=== PATIENT | female | born 1955 | race Caucasian/White ===

== ENCOUNTER 2020-03-13 07:47 | Outpatient (CLI) | payer BC, SELFPAY ==
--- NOTE | ~2020-03-13 | US_ITS ---
US right upper quadrant DATE: 03/13/2020 08:31 INDICATION: Right upper quadrant abdominal pain for 1.5 weeks TECHNIQUE: Real-time imaging of liver, pancreas, gallbladder areas COMPARISON: 12/25/2016 Limited abdominal ultrasound FINDINGS: The pancreas is obscured by bowel gas. There is fatty change of the liver. There is normal hepatic portal venous flow direction. There is an approximately 1.8 cm gallbladder neck stone. No gallbladder wall thickening. Negative son ographic Robin's sign. The common bile duct measures 5.8 mm, within normal range. IMPRESSION: Cholelithiasis Hepatic steatosis Reviewed, dictated and finalized at [facility]. Reviewed, dictated and finalized at [facility].
[2020-03-13 09:10] LABS: Basophils Percent Auto 0.6 % (0.2-1.2); Eosinophils Absolute Auto 0.2 K/mm3 (0-0.3); Eosinophils Percent Auto 2.9 % (0-4.4); Hematocrit 37.2 % (37.0-47.0); Immature Granulocyte Absolute 0.02 K/mm3 (0.00-0.031); Immature Granulocyte Percent A 0.3 % (0-0.5); Lymphocytes Percent Auto 20.1 % (18.3-44.2); Mean Corpuscular HGB Conc 29.6 g/dl (32-36); Mean Corpuscular Hemoglobin 22.7 pg (26-34); Mean Corpuscular Volume 76.9 fl (80-100); Mean Platelet Volume 9.9 fl (7.4-10.4); Monocytes Absolute Auto 0.7 K/mm3 (0.1-0.6); Monocytes Percent Auto 10.5 % (2.6-8.5); Neutrophils Absolute Auto 4.2 K/mm3 (1.3-6.7); Neutrophils Percent Auto 65.6 % (45.5-73.1); Platelet Count Result 303 k/mm3 (150-375); Red Blood Count 4.84 M/mm3 (4.2-5.4); Red Cell Distribution Width 18.5 % (11.5-14.5); White Blood Count 6.5 K/mm3 (4.5-10.0)
[2020-03-13 09:25] LABS: Alanine Aminotransferase 31 U/L (4-35); Albumin Level 4.2 g/dL (3.5-5.1); Alkaline Phosphatase 85 U/L (38-126); Amylase 49 U/L (30-110); Aspartate Amino Transferase 30 U/L (14-36); Bilirubin,Total 0.2 mg/dL (0.2-1.3); Blood Urea Nitrogen 17 mg/dL (7-17); Calcium 9.1 mg/dL (8.4-10.2); Carbon Dioxide 30 mmol/L (22-30); Chloride 103 mmol/L (98-107); Estimated Glomerular Filt Rate > 60; Glucose 106 mg/dL (65-105); Lipase 49 U/L (23-300); Potassium 3.9 mmol/L (3.4-5.0); Sodium 140 mmol/L (137-145)
[2020-03-13 09:55] LABS: Anisocytosis 1+ (NORMAL); Hypochromasia 1+ (NORMAL); Platelet Estimate Adequate (Adequate)
== END 2020-03-13 07:48 | disposition home or self-care (01) ==
PROVIDERS: PCP Family Medicine; Visit Provider Nurse Practitioner Family
DX: R10.11 Right upper quadrant pain (principal); K80.20 Calculus of gallbladder without cholecystitis without obstruction; K76.0 Fatty (change of) liver, not elsewhere classified
CPT/HCPCS: 36415; 76705; 80053; 82150; 83690; 85025

== ENCOUNTER 2020-06-22 15:23 | Outpatient (CLI) | payer BC, SELFPAY ==
--- NOTE | 2020-06-22 15:25 | ECG_ITS ---
Measurements Intervals [place] Rate: 67 P: 16 DC: 150 QRS: 37 QRSD: 149 T: 24 QT: 414 QTc: 440 Interpretive Statements SINUS RHYTHM RIGHT BUNDLE BRANCH BLOCK ABNORMAL ECG Electronically Signed On 06-22-2020 16:34:03 CDT by Branden Negro D.O.
[2020-06-22 16:07] LABS: Alanine Aminotransferase 24 U/L (4-35); Albumin Level 3.8 g/dL (3.5-5.1); Alkaline Phosphatase 91 U/L (38-126); Amylase 61 U/L (30-110); Aspartate Amino Transferase 23 U/L (14-36); Bilirubin,Total < 0.1 mg/dL (0.2-1.3); Lipase 69 U/L (23-300)
== END 2020-06-22 15:24 | disposition home or self-care (01) ==
PROVIDERS: PCP Family Medicine; Visit Provider Surgery
DX: K80.10 Calculus of gallbladder with chronic cholecystitis without obstruction (principal); I10 Essential (primary) hypertension; Z01.812 Encounter for preprocedural laboratory examination; I45.10 Unspecified right bundle-branch block
CPT/HCPCS: 36415; 80076; 82150; 83690; 86850; 86900; 86901; 93005

== ENCOUNTER 2020-07-02 01:33 | Outpatient (CLI) | payer BC, SELFPAY ==
[2020-07-02 18:20] LABS: SARS-CoV-2 RNA PCR Negative
== END 2020-07-02 01:34 | disposition home or self-care (01) ==
LOC: ANHCOVIDDT 01:33
PROVIDERS: PCP Family Medicine; Visit Provider Surgery
DX: Z01.812 Encounter for preprocedural laboratory examination (principal); Z11.59 Encounter for screening for other viral diseases
CPT/HCPCS: 87635; C9803; U0003

== ENCOUNTER 2020-07-04 01:08 | Day surgery (SDC) | payer BC, SELFPAY ==
[2020-06-19 09:20] VITALS: BMI 37.9
--- NOTE | 2020-07-03 08:43 | PM.SD ---
Same Day Admit/Disch: HPI History of Present Illness Chief complaint: Chronic Cholelithiasis with Stones Narrative: Jessika Coppola is a 64 year old female Who started did noting right upper quadrant postprandial abdominal pain about 3 or 4 months ago. This was worse after eating fatty foods. She did changed to a low-fat diet and her symptoms improved significantly. Iigj-zib-epzywwc gas reduction medication have helped as well. She had an ultrasound of the right upper quadrant back in February which showed gallstones with a 1.8 cm stone at the neck of the gallbladder. Her mother has had gallbladder disease and cholecystectomy. After discussion, she is taken to surgery now for laparoscopic cholecystectomy for chronic cholecystitis with gallstones. 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 Spiritual care concerns: No Same Day Admit/Disch: Med Pre-admit Medications Home Medications Medication Instructions Recorded Confirmed Type sertraline 25 mg tablet 25 mg PO DAILY #90 tablet 10/17/19 06/19/20 Rx losartan 25 mg tablet 25 mg PO DAILY #90 tablet 04/25/20 06/19/20 Rx metoprolol succinate 100 mg 100 mg PO DAILY #90 tablet 04/30/20 06/19/20 Rx tablet,extended release 24 hr hydrocodone-acetaminophen 1 - 2 tablet PO Q6H PRN #7 tablet 07/04/20 Rx ketorolac 10 mg PO Q6H 4 Days #16 tablet 07/04/20 Rx Exam Const: General: comfortable, no acute distress, alert and awake HENMT: Head: normocephalic and atraumatic Mouth: Yes Normal oral and palatal mucosa present Eyes: Conjunctivae: conjunctivae normal Pupils: Equal, round and reactive pupils present EOM: EOMs intact bilaterally Neck: Neck: normal visual inspection, no lymphadenopathy and nontender Resp: Effort & Inspection: normal respiratory effort Auscultation: clear to auscultation bilaterally Cardio: Rate: regular rate Rhythm: regular rhythm Heart sounds: no gallops, no murmurs and no rubs GI: Inspection: non-distended and obesity GI Palp: Yes Soft to palpation, No Tenderness to palpation present (GI), No Hepatomegaly present, No Splenomegaly present and No Palpable mass present Auscultation: normal bowel sounds Skin: Lesions: no lesions Rashes: no rashes Neuro: General: no focal motor deficits and CN's II-XI intact bilaterally Cranial nerves: Yes Equal, round and reactive pupils present, Yes Bilaterally intact EOM present, Yes facial symmetry and Yes Midline tongue present Speech: normal speech Motor exam (neuro): 5/5 motor strength present throughout and Motor abnormalities not present Extrem: General: no clubbing, cyanosis or edema and edema Psych: Affect: normal affect Thought process: Normal thought process present Insight: Good insight present (Psych) DS: Summary Time Spent with Patient Time attestation: Total time spent providing and/or coordinating discharge services: DS: Admitting Diagnosis Admitting Diagnosis Admitting Diagnosis: Calculus of gallbladder with chronic cholecystitis without obstruction essential hypertension obesity seasonal allergies DS: Discharge Diagnosis Discharge Diagnosis (1) Cholelithiasis with chronic cholecystitis: Qualifiers:
[2020-07-04] VITALS (9 sets, daily range): BP systolic 149–186; BP diastolic 81–99; PULSE 81–92; RESP 10–18; TEMP 36.9–37; O2SAT 93–100
[2020-07-04] MEDS: ACETAMINOPHEN 500 MG TABLET 1000 MG PO (07:05)
[2020-07-04] MEDS: LACTATED RINGERS 1,000 ML 30 ML IV CONT ×2 (07:10→10:11)
--- NOTE | 2020-07-04 07:11 | WPDANESEPPF ---
Anes - Initial Pre Proc Eval Procedure: Operation Date: 07/04/20 08:30 Proposed Procedures p Laparoscopic Cholecystectomy - Dinesh Owens MD Date/Time: 07/04/20 07:11 Surgeon: Dinesh Owens MD Pre Op Diagnosis: Chronic Cholelithiasis with Stones Patient Data Age: 64 Gender: F Height: 5 ft 6 in Weight: 108.8 kg Allergies Allergy/AdvReac Type Severity Reaction Status Date / Time lisinopril Allergy Mild swelling Verified 06/19/20 09:21 Home Medications Medication Instructions Recorded Confirmed Type sertraline 25 mg tablet 25 mg PO DAILY #90 tablet 10/17/19 06/19/20 Rx losartan 25 mg tablet 25 mg PO DAILY #90 tablet 04/25/20 06/19/20 Rx metoprolol succinate 100 mg 100 mg PO DAILY #90 tablet 04/30/20 06/19/20 Rx tablet,extended release 24 hr Patient hx anesthesia problems: other (motion sickness) Family hx anesthesia problems: none PMFSH Past Medical History Medical History Anxiety Essential (primary) hypertension Hypothyroidism Stomach ulcer Surgical History Surgical History H/O: section Family History Family History Father Hypertension Cancer Mother Cerebrovascular accident Grandparent Family history of malignant neoplasm Diabetes mellitus Sibling Cerebrovascular accident Other Family history of alcoholism Social History Social History Smoking status: Never smoker Alcohol intake: current Drinks per week: 2 Substance use: never 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 Questions were solicited and answers provided to the satisfaction of the patient/family/POA.
[2020-07-04] MEDS: KETOROLAC 15 MG/ML VIAL (*BKC) IV PUSH (07:16)
[2020-07-04] MEDS: SCOPOLAMINE 1.5 MG PATCH TRANSDERM (07:17)
--- NOTE | 2020-07-04 08:46 | WPDHPUPDATE1 ---
History and Physical Update Update Date/Time: 07/04/20 08:46 History and Physical has been reviewed, including an updated exam of the patient. There are NO changes in the patient's condition. Risks, benefits, and alternatives have been discussed and questions answered. Patient agrees to proceed with procedure.
[2020-07-04] MEDS: ceFAZolin 2 GM/D5W 50 ML 2 GM/50 ML BAG IVPB (08:54)
[2020-07-04] MEDS: BUPIVACAINE/EPINEPHRINE 0.5% 30 ML VIAL INFILTRATE (09:11)
--- NOTE | 2020-07-04 09:52 | P.OP_ITS ---
Procedure Note - Detailed Date of procedure: 07/04/20 Pre-op diagnosis: Chronic Cholelithiasis with Stones Chronic cholecystitis, cholelithiasis Post-op diagnosis: same Procedure performed: Laparoscopic cholecystectomy Description of procedure: The patient was taken to surgery and induced into general anesthesia. The abdomen was prepped and draped. Trocars were placed in the usual fashion using 0.5% Marcaine with epinephrine and applied Medical optical trocars. A 5 millimeter camera was used. The gallbladder was decompressed with a laparoscopic aspirator. The cholecystotomy was closed with a Vicryl endo-loop. The gallbladder was retracted anterosuperiorly. Adhesions to the gallbladder were taken down so that the cholecystohepatic triangle was exposed. Traction was placed on the inf undibulum. The cystic duct and cystic artery were dissected out very clearly. The gallbladder was dissected off the liver at its lower 3rd. Critical view was achieved. We securely clipped and divided the cystic duct and cystic artery. The gallbladder was then further retracted so that the peritoneal attachments to the liver could be divided. Once the gallbladder was freed entirely, it was plac ed in an Endo-Catch bag and retrieved through the 10 11 epigastric trocar site. The epigastric trocar was then replaced. We reviewed the right upper quadrant. It was irrigated and suctioned. All looked good with no evidence of bleeding or bile leakage. We evacuated CO2 and removed the trocar sleeves. Skin wounds were closed with subcuticular 4 O Monocryl skin suture. The wounds were dressed with Exofin surgical adhesive. Patient was awakened and taken to recovery in good condition. Sponge and needle counts were correct x2. Anesthesia: GETA and local (0.5% Marcaine with epinephrine) Surgeon: Dinesh Owens MD Evaluator Transfer Students: Kristan CHRISTINE Estimated blood loss (mL): 20 Drains: No Packing: No Pathology: yes (Gallbladder) Complications: None Condition: stable Disposition: PACU Findings: Chronic inflammation, no gallstones noted. No biliary ductal dilatation, no liver abnormalities.
== END 2020-07-04 12:18 | disposition home or self-care (01) ==
PROVIDERS: PCP Family Medicine; Visit Provider Surgery
PROC: 0FT44ZZ Resection of Gallbladder, Percutaneous Endoscopic Approach (ICD-10-PCS; CPT 47562; principal; 2020-07-04 08:30)
DX: K80.10 Calculus of gallbladder with chronic cholecystitis without obstruction (principal); I10 Essential (primary) hypertension; E03.9 Hypothyroidism, unspecified; F41.9 Anxiety disorder, unspecified; Z87.11 Personal history of peptic ulcer disease; E66.9 Obesity, unspecified; Z68.38 Body mass index [BMI] 38.0-38.9, adult
CPT/HCPCS: 47562; 88304; A9270; C1713; J0330; J0690; J1100; J1885; J2250; J2405; J2704; J2710; J3010; J7030; J7120

== ENCOUNTER 2022-07-27 08:23 | Emergency (ER) | payer OTHER, SELFPAY ==
[2022-07-27 08:27] VITALS: BP 217/107; PULSE 87; RESP 18; TEMP 36.2; O2SAT 100
--- NOTE | 2022-07-27 08:47 | ED.GENADULT ---
HPI - General Adult General Chief complaint: Ear Stated complaint: infection ears Time Seen by Provider: 07/27/22 08:28 Source: RN notes reviewed History of Present Illness HPI narrative: Patient presents emergency room from home for right ear pain. Patient states symptoms began 2 days ago. The pain is located in the right ear and goes into the right side of the face and the right lower jaw as well as into the right sinus. States that it feels like pressure in nature. She denies any fevers or chills she denies any rhinorrhea denies sore throat cough or shortness of breath states she has had similar episodes before in the past with ear infections and sinus infections is normally improved with antibiotics. She denies having any cough abdominal pain nausea vomiting states she not taking thing for the pain this morning Related Data Allergies Allergy/AdvReac Type Severity Reaction Status Date / Time lisinopril Allergy Mild swelling Verified 07/27/22 09:16 Review of Systems Review of Systems: Gen.: Denies fevers or chills Eyes: Denies eye pain or visual change ENT: See HPI Respiratory: Denies shortness of breath or cough CV: Denies chest pain or palpitations GI: Denies abdominal pain nausea, emesis Musculoskeletal: Denies back pain or muscle pain Neuro: Denies numbness, tingling, weakness or focal weakness Skin: Denies rash Except as documented, all other systems reviewed and negative [facility] Past Medical History Medical History Anxiety BMI 36.0-36.9,adult Essential (primary) hypertension Hypothyroidism Stomach ulcer Surgical History Surgical History H/O: section Hx laparoscopic cholecystectomy Family History Family History Father Hypertension Cancer Mother Cerebrovascular accident Grandparent Family history of malignant neoplasm Diabetes mellitus Sibling Cerebrovascular accident Other Family history of alcoholism Social History Social History Smoking status: Never smoker Alcohol intake: current Drinks per week: 2 Substance use: never 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 CARDIOVASCULAR: Regular rate and rhythm without murmurs rubs or gallops. ABDOMINAL: Soft, nontender, nondistended, no rebound or guarding MUSCULOSKELETAl: Moves all extremities. No clubbing, cyanosis or edema. NEURO: Awake and alert. Following commands, speech normal, no focal deficits SKIN:: Warm, dry. No rashes lesions or abrasions PSYCHIATRIC: Normal affect/mood, Course Course Emergency Course: Discussed with patient results of workup and diagnosis. Discussed need for follow-up with primary care, proper use of medication, and reasons to return to the emergency department. Patient understands and agrees to current treatment plan Discussed patient blood pressure states she had just taken her blood pressure medication just before coming to the emergency department Vital Signs Vital signs: Vital Signs Temperature 97.1 F L 07/27/22 08:27 Pulse Rate 87 07/27/22 08:27 Respiratory Rate 18 07/27/22 08:27 Blood Pressure 217/107 H 07/27/22 08:27 Pulse Oximetry 100 07/27/22 08:27 Oxygen Delivery Room Air 07/27/22 08:27 Temperature 97.1 F L 07/27/22 08:27 Pulse Rate 78 07/27/22 09:16 Respiratory Rate 18 07/27/22
[2022-07-27] MEDS: IBUPROFEN 600 MG TABLET PO (08:52)
[2022-07-27] MEDS: AMOXICILLIN/CLAVULANATE K 875-125 MG TAB 1 TABLET PO (08:52)
[2022-07-27 09:16] VITALS: BP 175/113; PULSE 78; RESP 18; O2SAT 99
== END 2022-07-27 09:30 | disposition home or self-care (01) ==
PROVIDERS: Emergency Provider Emergency Medicine; PCP Family Medicine
DX: H66.91 Otitis media, unspecified, right ear (principal); F41.9 Anxiety disorder, unspecified; I10 Essential (primary) hypertension; E03.9 Hypothyroidism, unspecified
CPT/HCPCS: 99283; A9270

== ENCOUNTER → 2022-09-23 16:30 | Outpatient (CLI) | payer OTHER, SELFPAY ==
--- NOTE | ~2022-09-23 | XR_ITS ---
XR wrist RT min 3V DATE: 09/23/2022 16:44 INDICATION: Right wrist pain TECHNIQUE: 4 views COMPARISON: None FINDINGS: No fracture or dislocation, periosteal reaction or bone destruction, erosive change or fernando drocalcinosis. Joint spaces are preserved. IMPRESSION: Negative Reviewed, dictated and finalized at [facility]. IMPRESSION: Negative
== END ==
PROVIDERS: PCP Family Medicine; Visit Provider Nurse Practitioner Family
DX: M25.531 Pain in right wrist (principal); M25.439 Effusion, unspecified wrist
CPT/HCPCS: 73110

== ENCOUNTER 2023-08-25 07:30 | Outpatient (CLI) | payer OTHER, SELFPAY ==
--- NOTE | 2023-08-25 07:43 | ECHO_ITS ---
Patient Info Name: Jessika Coppola Age: 67 years : 1955 Gender: Female Ht: 67 in Wt: 224 lbs BSA: 2.23 m2 HR: 80 bpm BP: 153 / 101 mmHg Heart Rhythm: Sinus Rhythm Technical Quality: Fair Exam Date: 08/25/2023 7:57 AM Exam Location: [facility] Patient Status: Outpatient Admit Date: 08/25/2023 Staff Ordering Physician: Checo Bell NP Banquet Steward: Daniella Dover RDCS Attending Provider: Checo Bell NP Referring Physician: Ray LOPEZ; Exam Type: CA echo doppler color flow Study Info Indications R06.02 - Shortness of breath Complete two-dimensional, color flow and Doppler transthoracic echocardiogram is performed. Summary 1. Complete two-dimensional, color flow and Doppler transthoracic echocardiogram is performed. 2. Left ventricular chamber dimension is normal. 3. Left ventricular systolic function is normal, estimated at 65-70%. 4. There is mildly increased left ventricular wall thickness. 5. The left ventricular diastolic function is grade I diastolic dysfunction. 6. Right ventricular systolic function is normal. 7. There is mild tricuspid valve regurgitation. 8. There is mild pulmonic regurgitation. 9. There is small anterior pericardial effusion. Left Ventricle Left ventricular chamber dimension is normal. Left ventricular systolic function is normal, estimated at 65-70%. There is mildly increased left ventricular wall thickness. The left ventricular diastolic function is grade I diastolic dysfunction. Right Ventricle Right ventricular chamber dimension is normal. Right ventricular systolic function is normal. Left Atria Left atrial chamber dimension is normal. Right Atria Right atrial chamber dimension is normal. Atrial Septum Intact interatrial septum visualized by color flow imaging. Aortic Valve The aortic valve is probable trileaflet. There is no aortic valve stenosis. There is no aortic valve regurgitation. Pulmonic Valve The pulmonic valve is not well visualized. There is mild pulmonic regurgitation. Mitral Valve There is trace mitral valve regurgitation. Tricuspid Valve There is mild tricuspid valve regurgitation. Pericardium/Pleural There is small anterior pericardial effusion. Inferior Vena Cava Normal inferior vena cava with >50% collapse upon inspiration consistent with normal right atrial pressure, 3 mmHg. Aorta The aortic root size at the sinus of Valsalva is normal. Left Ventricular Outflow Tract Name Value Normal LVOT 2D LVOT Diameter 2.0 cm LVOT Doppler LVOT Peak Gradient 6 mmHg LVOT Mean Gradient 3 mmHg LVOT VTI 25 cm LVOT VTI/AV VTI Ratio 0.8 LVOT Stroke Volume 81 ml LVOT CO 5.8 l/min LVOT CI 2.6 l/min/m2 Pulmonic Valve Name Value Normal RVOT Doppler
== END 2023-08-25 07:31 | disposition home or self-care (01) ==
LOC: ANHCARD 07:33
PROVIDERS: PCP Family Medicine; Visit Provider Nurse Practitioner Family
DX: R06.02 Shortness of breath (principal); I07.1 Rheumatic tricuspid insufficiency; I37.1 Nonrheumatic pulmonary valve insufficiency; I31.39 Other pericardial effusion (noninflammatory); R93.1 Abnormal findings on diagnostic imaging of heart and coronary circulation
CPT/HCPCS: 93306

== ENCOUNTER 2024-01-25 00:23 | Day surgery (SDC) | payer OTHER, SELFPAY ==
[2024-01-22 15:00] VITALS: BMI 36.2
[2024-01-25] VITALS (10 sets, daily range): BP systolic 120–152; BP diastolic 71–95; PULSE 62–72; RESP 11–20; TEMP 36.3; O2SAT 93–98
[2024-01-25 09:04] LABS: Basophils Percent Auto 0.5 % (0.2-1.2); Eosinophils Absolute Auto 0.3 K/mm3 (0-0.3); Eosinophils Percent Auto 3.9 % (0-4.4); Hematocrit 39.9 % (37.0-47.0); Hemoglobin 12.7 g/dL (12.0-15.0); Immature Granulocyte Absolute 0.01 K/mm3 (0.00-0.031); Immature Granulocyte Percent A 0.2 % (0-0.5); Lymphocytes Absolute Auto 1.32 K/mm3 (0.9-3.2); Lymphocytes Percent Auto 20.6 % (18.3-44.2); Mean Corpuscular HGB Conc 31.8 g/dl (32-36); Mean Corpuscular Volume 88.1 fl (80-100); Mean Platelet Volume 9.5 fl (7.4-10.4); Monocytes Absolute Auto 0.7 K/mm3 (0.1-0.6); Monocytes Percent Auto 10.1 % (2.6-8.5); Neutrophils Absolute Auto 4.2 K/mm3 (1.3-6.7); Neutrophils Percent Auto 64.7 % (45.5-73.1); Platelet Count Result 289 k/mm3 (150-375); Red Blood Count 4.53 M/mm3 (4.2-5.4); Red Cell Distribution Width 14.5 % (11.5-14.5); White Blood Count 6.4 K/mm3 (4.5-10.0)
[2024-01-25 09:15] LABS: Anion Gap 8 mmol/L (8-16); Blood Urea Nitrogen 11 mg/dL (7-17); Calcium 9.2 mg/dL (8.4-10.2); Carbon Dioxide 27 mmol/L (22-30); Chloride 105 mmol/L (98-107); Estimated CRCL calculation 114 ml/min; Estimated Glomerular Filt Rate > 60; Glucose 109 mg/dL (65-110); Potassium 3.9 mmol/L (3.4-5.0); Sodium 140 mmol/L (137-145)
--- NOTE | 2024-01-25 09:47 | WPDMODSED ---
Moderate Sedation Note-Pt Data Patient Data Diagnosis: shortness of breath, abnormal stress test Present Complaint: dyspnea on exertion Procedure to be performed/Plan: left heart catheterization Allergies Allergy/AdvReac Type Severity Reaction Status Date / Time lisinopril Allergy Mild swelling Verified 01/22/24 15:12 Home Medications Medication Instructions Recorded Confirmed Type losartan 100 mg tablet 100 mg PO DAILY #90 tabs 03/16/23 01/22/24 Rx metoprolol succinate 100 mg 100 mg PO DAILY #90 tabs 11/19/23 01/22/24 Rx tablet,extended release 24 hr amlodipine 10 mg tablet 10 mg PO DAILY #90 tabs 12/22/23 01/22/24 Rx cholecalciferol (vitamin D3) 100 100 mcg PO DAILY 01/22/24 01/22/24 History mcg (4,000 unit) tablet sertraline 25 mg tablet 25 mg PO DAILY 01/22/24 01/22/24 History Sedation/Anesthesia: No previous sedation/anesthesia problems (including family history). [facility] Past Medical History Medical History Anxiety BMI 36.0-36.9,adult BMI 37.0-37.9, adult Essential (primary) hypertension Hypothyroidism Stomach ulcer Surgical History Surgical History H/O: section Hx laparoscopic cholecystectomy Family History Family History Father Hypertension Cancer Mother Cerebrovascular accident Emphysema lung Grandparent Family history of malignant neoplasm Diabetes mellitus Sibling Cerebrovascular accident COPD (chronic obstructive pulmonary disease) Other Family history of alcoholism Social History Social History Smoking status: Never smoker Second hand tobacco smoke exposure: No Alcohol intake: never Drinks per week: 0 Alcohol use details: rarely Substance use: never Substance use type: does not use Lack of Transportation: No Lack of Food: Never True Current Housing: I Have Housing Concerned About Future Housing: No Difficulty Paying Gas/Electric Bills: No Difficulty Paying for Meds: No Currently Unemployed: No Education: High School Diploma/GED Difficulty w/ Childcare or Family Care: No Living arrangements: with family Additional living arrangements comments: disableed brother lives with her. 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 Gender identity (if verbalized by the patient): Female Spiritual care concerns: No Mod Sed Physical Exam Physical Exam Pre Procedural Exam: Normal: Neck, Throat, Airway, Lungs, Heart Rate, Heart Rhythm, Neuro Exam and Extremities and Variation: Appearance ( obese white female no apparent distress) and Heart Size ( PMI not palpable) Hours since solid foods: 12 Hours since liquid intake: 12 Mallampati Classification: class III Internal Medicine - PN: Obj Da Vital Signs Vital Signs: Vital Signs - 24 hr 01/25/24 08:43 Temperature 36.3 C L Pulse Rate 72 Respiratory Rate 15 Blood Pressure 152/94 H Pulse Oximetry 97 Oxygen Delivery Room Air Labs 01/25/24 08:40 01/25/24 08:40 Labs: Laboratory Results - last 24 hr 01/25/24 08:40 WBC 6.4 RBC 4.53 Hgb 12.7 Hct 39.9 MCV 88.1 MCH 28.0 MCHC 31.8 L RDW 14.5 Plt Count 289 MPV 9.5 Immature Gran % (Auto) 0.2 Neut % (Auto) 64.7 Lymph % (Auto) 20.6 [place] % (Auto) 10.1 H Eos % (Auto) 3.9 Baso % (Auto) 0.5 Lymph # (Auto) 1.32 [place] # (Auto) 0.7 H Eos # (Auto) 0.3 Baso # (Auto) 0.0 Abs Immat Gran (auto) 0.01 Absolute Neuts (auto) 4.2 Absolute Nucleated RBC 0.0 Nucleated RBC % 0.0 Sodium 140 Potassium 3.9 Chloride 105 Carbon Dioxide 27 Anion Gap 8 BUN 11 D Creatinine 0.50 L Estim Creat Clear Calc 114 Estimated GFR > 60 Glucose 109 Calcium 9.2 ASA Classification/Sedation ASA Classific
--- NOTE | 2024-01-25 10:29 | P.PCNCC_ITS ---
Cardiac Cath Procedure Note Date of procedure:: 01/25/24 Performing physician:: Hieu Mooney MD Indication:: exertional dyspnea abnormal stress echo Brief clinical history:: this is a 68-year-old woman with hypertension and obesity who has been reporting symptoms of dyspnea. A stress echocardiogram done now to investigate this as demonstrated echocardiographic evidence of LV enlargement following ex ercise. Because of this angiography has been recommended. Procedure Procedure performed:: Left ventriculogram coronary angiogram Angio-Seal to right femoral artery Sedation/Medication given:: fentanyl 50 mg Versed 2 mg case start time 10:08 a.m. case end time 10:26 a.m. sedation provided by Maritza Herzog RN trained observer Access site:: right femoral artery Estimated blood loss:: 20 cc Procedure note:: patient was brought to the cardiac catheterization lab in the postabsorptive state where the right femoral triangle was prepared and draped in the normal fashion. Anesthesia was infiltrated with 15 cc of lidocaine locally. Following this using the modified Seldinger technique the right common femoral artery was punctured and a 5 Bahraini vascular sheath was placed. After this standard 5 [place]raini angled pigtail catheter was used to measure left ventriculography in the ZARATE projection as well as to measure left-sided hemodynamics. After this the right coronary artery was engaged and injected using a standard 5 [place]raini JR4 catheter. The left coronary was then engaged and injected using a standard 5 [place] FL4 catheter. Procedure was well tolerated and uncomplicated. After the procedure the femoral artery angiogram was performed through the sheath and then a 6 [place]i Angio-Seal device was deployed with a good hemostatic result. Procedure was well tolerated and uncomplicated. 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 Findings:: Hemodynamics: Central pressure is 120/62 left ventricle 120/0 end-diastolic pressure was 12 there gradient pullback across the aortic valve. Left ventricle: The LV is normal in size all segments contract vigorously the global ejection fraction visually estimates to be 70%. There were no regional wall motion abnormalities. The left main coronary artery is short but widely patent the left anterior descending is a moderate caliber artery quite tortuous extending down to the apex. The LAD and its branches are angiographically free of disease. The circumflex is a large caliber vessel it is dominant to the posterior circulation the circumflex and its marginal branches, posterior branches and left PDA are angiographically unremarkable. The right coronary artery is medium in caliber and provides right ventricular branches the the RCA is free of disease. Conclusion:: 1. Left coronary dominant circulation with no angiographic abnormalities other than rather tortuous coronary artery 2. vigorous left ventricular systolic function 3. based on these findings symptoms of COOPER do not of have a cardiac basis and this recent stress echo was a false-positive. Hieu Mooney MD [facility]
== END 2024-01-25 12:40 | disposition home or self-care (01) ==
PROVIDERS: PCP Family Medicine; Visit Provider Specialist
PROC: 4A023N7 Measurement of Cardiac Sampling and Pressure, Left Heart, Percutaneous Approach (ICD-10-PCS; CPT 93452; principal; 2024-01-25 10:00)
DX: R94.39 Abnormal result of other cardiovascular function study (principal); I10 Essential (primary) hypertension; R06.09 Other forms of dyspnea; F41.9 Anxiety disorder, unspecified; E03.9 Hypothyroidism, unspecified; Z90.49 Acquired absence of other specified parts of digestive tract; Z82.49 Family history of ischemic heart disease and other diseases of the circulatory system; Z80.9 Family history of malignant neoplasm, unspecified
CPT/HCPCS: 36415; 80048; 85025; 93458; C1760; C1887; C1894; G0269; J1644; J2250; J3010; J7040